=== PATIENT | female | born 1980 | race Caucasian/White ===

== ENCOUNTER 2024-05-14 09:58 | Emergency (ER) | payer BC ==
--- OUTSIDE RECORDS SUMMARY | 2024-05-14 10:01 | XMS REPORT | Continuity of Care Document ---
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 Name Role Phone Nuris Lopez Attending Clinician Unavail able [email or web address] Attending Clinician Unavaila ble [email or web address]_S Admitting Clinician Unavaila ble Problems Condition Name Condition Details Condition Category Status Onset Date Resolution Date Last Treatment Date Treating Clinician Comments Source Depressive disorder Depressive Disorder Problem Active 05-01 00:00: 00 [facility] Migraine without aura Migraine without Aura Problem Active 05-01 00:00: 00 [facility] Idiopathic peripheral neuropathy Idiopathic Peripheral Neuropathy Problem Active 05-01 00:00: 00 [facility] Social History Smoking Status Start Date Stop Date Source Never Smoker [facility] Medications Ordered Medication Name Filled Medication Name Start Date Stop Date Current Medication? Ordering Clinician Indication Dosage Frequency Signature (SIG) Comments Components Source Cymbalta Cymbalta No Cymbalta [facility] melatonin melatonin No melatonin [facility] Neurontin 300 mg capsule Take 1 capsule 3 times a day by oral route. Neurontin 300 mg capsule Take 1 capsule 3 times a day by oral route. No 1capsul e(s) TID Neurontin 300 mg capsule Take 1 capsule 3 times a day by oral route. [facility] Qulipta 60 mg tablet Take 1 tablet every day by oral route. Qulipta 60 mg tablet Take 1 tablet every day by oral route. No 1 Q1D Qulipta 60 mg tablet Take 1 tablet every day by oral route. [facility] Slynd 4 mg (28) tablet Take 1 tablet every day by oral route for 28 days. Slynd 4 mg (28) tablet Take 1 tablet every day by oral route for 28 days. No 1 Q1D Slynd 4 mg (28) tablet Take 1 tablet every day by oral route for 28 days. [facility] Vital Signs Vital Name Observation Time Observation Value Comments S ource Body Weight 2024-05-01 00:00:00 133 [lb_av] [facility] BMI (Body Mass Index) 2024-05-01 00:00:00 22.8 kg/m2 [facility] BP Diastolic 2024-05-01 00:00:00 88 mm[Hg] [facility] BP Systolic 2024-05-01 00:00:00 122 mm[Hg] [facility] Height 2024-05-01 00:00:00 64 [in_i] [facility] Procedures Procedure Date / Time Performed Performing Clinicia n Source MAMMO, screening, digital, bilateral 2024-05-01 00:00:00 [facility] Appendectomy 2023-02-27 00:00:00 [facility] En[facility] Start Date/Time End Date/Time Encounter Type Admission Type Attending Clinicians Care Facility Care Department Encounter ID Source 2024-03-16 08:13:01 Outpatient [facility] [id number] [facility] 2024-05-01 00:00:00 2024-05-01 00:00:00 JUMA George: [address], [place] [address], [place] [address] , Ph. [facility] - [email or web address] [facility]* [id number] [facility] 2023-08-09 00:00:00 2023-08-09 00:00:00 Outpatient [email or web address] [email or web address]_S [facility] [id number] [facility] 2023-08-08 00:00:00 2023-08-08 00:00:00 Outpatient [email or web address] [email or web address]_S [facility] [id number] [facility]
--- NOTE | 2024-05-14 10:58 | RAD REPORT ---
EXAM DESCRIPTION: CT - Stone Protocol - 05/14/2024 10:43 am CLINICAL HISTORY: ABD PAIN COMPARISON: No comparisons TECHNIQUE: Thin cut axial CT imaging of the abdomen and pelvis was performed without IV contrast. Mu ltiplanar reformats were generated and reviewed. All CT scans are performed using dose optimization technique as appropriate and may include automated exposure control or mA/KV adjustment according to patient size. FINDINGS: No suspicious findings in the lung bases. The liver, spleen, adrenal glands, and pancreas show no suspicious findings. Gallbladder and biliary tree are also without suspicious finding. Symmetric renal contour, without suspicious parenchymal findings within limits of noncontrast techniq ue. No evidence of radiopaque calculi or hydroureteronephrosis. No dilated bowel loops or bowel wall thickening. No free air, free fluid or inflammatory stranding. N o hernia, mass or bulky lymphadenopathy. The urinary bladder is without significant finding. No suspicious bony findings. IMPRESSION: No acute intra-abdominal process.
[2024-05-14] MEDS ORDERED: NA CHLORIDE 0.9% 1,000 ML ONE (11:11)
[2024-05-14] MEDS ORDERED: KETOROLAC 30 MG/ML INJ ONE (11:11)
[2024-05-14 11:29] LABS: Absolute Eosinophils 0.1 K/uL (0-0.5); Absolute Lymphocytes (CBC) 1.5 K/uL (0.7-4.9); Absolute Monocytes 0.4 K/uL (0.1-1.3); Basophils % 0.7 % (0-1.3); Eosinophils % 2.2 % (0-4.4); Hematocrit 39.6 % (36.0-45.0); Hemoglobin 13.3 g/dL (12.0-15.0); Lymphocytes % 30.1 % (15.3-44.8); MCHC 33.5 g/dL (32.0-36.0); MCV 86.6 fL (80-100); MPV 7.7 fL (7.6-11.3); Monocytes % 7.8 % (3.3-12.3); Neutrophils % 59.2 % (41.7-73.7); Platelets 245 thou/uL (152-406); RBC Red Blood Cell Count 4.57 M/uL (3.86-4.86); Red Cell Distribution Width 13.7 % (12.1-15.2)
[2024-05-14 12:12] LABS: Specific Gravity < 1.005 (1.005-1.030); Sqamous Epithelial <5 /HPF (None Seen); Urine Bacteria <20 /HPF (<20); Urine Bilirubin NEGATIVE (Negative); Urine Blood Negative (Negative); Urine Clarity Turbid (Clear); Urine Color Colorless (Yellow); Urine Culture Reflex Order NOT NEEDED; Urine Glucose NEGATIVE (Negative); Urine Ketones NEGATIVE (Negative); Urine Microscopic Reflex YN ORDER UMIC; Urine Mucus Slight /HPF (None Seen); Urine Nitrite NEGATIVE (Negative); Urine Protein NEGATIVE (Negative); Urine RBC <5 /HPF (None Seen); Urine Urobilinogen Normal (Normal); Urine WBC <5 /HPF (<5)
[2024-05-14 12:13] LABS: Specific Gravity 1.003 (1.005-1.030)
[2024-05-14 12:44] LABS: Anion Gap 4.2 mEq/L (5.0-15.0); Potassium 3.2 mEq/L (3.5-5.1)
--- NOTE | 2024-05-14 13:05 | ER ---
Nurse's Notes [facility] Name: Airam Richard Age: 44 yrs Sex: Female : 1980 Arrival Date: 05/14/2024 Time: 09:58 Bed 16 Private MD: Diagnosis: Low back pain Presentation: 05/14 10:31 Chief complaint: Patient states: Severe low back pain since Tuesday. Went to urgent care, abdominal pain for 2 days also. Coronavirus screen: Client denies travel out of the [place] in the last 14 days. At this time, the client does not indicate any symptoms associated with coronavirus-19. Ebola Screen: Patient denies travel to an Ebola-affected area in the 21 days before illness onset. Initial Sepsis Screen: Does the patient meet any 2 criteria? No. Patient's initial sepsis screen is negative. Does the patient have a suspected source of infection? No. Patient's initial sepsis screen is negative. Risk Assessment: Do you want to hurt yourself or someone else? Patient reports no desire to harm self or others. Onset of symptoms was May 12, 2024. 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 - Infectious Disease History:: Denies. - Social history:: Smoking status: Patient denies any tobacco usage or history of. Screenin:30 [facility] ED Fall Risk Assessment (Adult) History of falling in the last 3 months, dd2 including since admission No falls in past 3 months (0 pts) Confusion or Disorientation No (0 pts) Intoxicated or Sedated No (0 pts) Impaired Gait No (0 pts) Mobility Assist Device Used No (0 pt) Altered Elimination No (0 pt) Score/Fall Risk Level. Abuse screen: Denies threats or abuse. Nutritional screening: No deficits noted. Tuberculosis screening: No symptoms or risk factors identified. Assessment: 11:30 General: Appears uncomfortable, Behavior is calm, cooperative, Reports. Pain: Complains dd2 of pain in back and abdomen. Neuro: No deficits noted. Cardiovascular: No deficits noted. Respiratory: No deficits noted. GI: No deficits noted. : No deficits noted. EENT: No deficits noted. Derm: No deficits noted. Musculoskeletal: Reports pain in lumbar area, left low back and right low back since 05/13/2024. Vital Signs: 10:31 BP 138 / 88; Pulse 93; Resp 18; Temp 97; Pulse Ox 99% ; hb 11:30 BP 138 / 96; Pulse 73; Resp 15; Pulse Ox 100% ; dd2 13:35 BP 131 / 87; Pulse 68; Resp 15; Pulse Ox 100% ; dd2 ED Course: 10:00 Patient arrived in ED. ra3 10:02 Lindsey Dias FNP-C is PHCP. kb 10:02 Johnny Cuellar MD is Attending Physician. kb 10:33 Triage completed. hb 10:34 Arm band placed on. hb 10:45 CT Stone Protocol In Process Unspecified. EDMS 11:30 Patient has correct armband on for positive identification. Bed in low position. Call dd2 light in reach. Side rails up X 1. Provided Education on: CALL LIGHT, LABS. 11:30 No provider procedures requiring assistance completed. Inserted. Inserted saline lock: dd2 20 gauge in right antecubital area, using aseptic technique. Blood collected. Flushed with 10 mL NS. 11:49 TUNG LANDRY, RN is Primary Nurse. dd2 14:01 IV discontinued, intact, bleeding controlled, No redness/swelling at site. Pressure dd2 dressing applied. Administered Medications: 11:30 Drug: NS 0.9% IV 1000 ml IV at 1000 ml once Route: IV; Rate: 1000 ml; Site: right dd2 antecubital; 13:34 Follow up: Response: No adverse reaction; IV Status: Completed infusion; IV Intake: dd2 1000ml 11:30 Drug: Ketorolac IVP 15 mg IVP once Route: IVP; Site: right antecubital; dd2 11:45 Follow up: Response: No adverse reaction; Pain is decreased dd2 11:45 Follow up: Response: No adverse reaction dd2 13:33 Drug: Hydrocodone-Acetaminophen PO (7.5 mg-325 mg) 1 tabs PO once Route: PO; dd2 14:00 Follow up: Response: No adverse reaction dd2 13:33 Drug: Potassium Chloride PO 40 mEq PO once Route: PO; dd2 14:00 Follow up: Response: No adverse reaction dd2 13:33 Drug: Ondansetron IVP 4 mg IVP once; over 2 minutes Route: IVP; Site: right antecubital;dd2 13:48 Follow up: Response: No adverse reaction dd2 Medication: 11:30 VIS not applicable for this client. dd2 Intake: 13:34 IV: 1000ml; Total: 1000ml. dd2 Outcome: 13:05 Discharge ordered by MD. mcrae 14:01 Discharged to home ambulatory, with family, dd2 14:01 Condition: good 14:01 Discharge instructions given to patient, family, Instructed on discharge instructions, follow up and referral plans. medication usage, Demonstrated understanding of instructions, follow-up care, medications, Prescriptions given X 1, 14:02 Patient left the ED. dd2 Signatures: Dispatcher [employer] EDMS Lindsey Dias, JUMA-C HAZMAT TECHNICIAN-Lorraine Howard, LISBET RN Lorin Niño 3 TUNG LANDRY RN RN dd2
--- NOTE | 2024-05-14 13:06 | EDPHYS ---
Physician Documentation [facility] Name: Airam Richard Age: 44 yrs Sex: Female : 1980 Arrival Date: 05/14/2024 Time: 09:58 Bed 16 Private MD: ED Physician Johnny Cuellar HPI: 05/14 13:11 This 44 yrs old Female presents to ER via Ambulatory with complaints of Low Back Pain. kb 13:11 Pt is a 44 year old female who presents for mid low back pain that started 3 days ago. kb States she went to Urgent Care and was told she needed testing they couldn't do at because she had tenderness to abd on exam. Denies urinary symptoms, n/v/d, fever. . 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 - Infectious Disease History:: Denies. - Social history:: Smoking status: Patient denies any tobacco usage or history of. ROS: 13:11 Constitutional: As per HPI kb Exam: 13:11 Constitutional: This is a well developed, well nourished patient who is awake, alert, kb and in no acute distress. Head/Face: Normocephalic, atraumatic. ENT: Moist Mucous membranes Cardiovascular: Regular rate Respiratory: Respirations even and unlabored. No increased work of breathing. Talking in full sentences Abdomen/GI: Soft, non-tender. No distention Back: No spinal tenderness. No costovertebral tenderness. Full range of motion. Skin: Warm, dry with normal turgor. Normal color. MS/ Extremity: Pulses equal, no cyanosis. Neurovascular intact. Full, normal range of motion. Neuro: Awake and alert, GCS 15, oriented to person, place, time, and situation. Moves all extremities. Normal gait. Vital Signs: 10:31 BP 138 / 88; Pulse 93; Resp 18; Temp 97; Pulse Ox 99% ; hb 11:30 BP 138 / 96; Pulse 73; Resp 15; Pulse Ox 100% ; dd2 13:35 BP 131 / 87; Pulse 68; Resp 15; Pulse Ox 100% ; dd2 MDM: 10:02 Patient medically screened. kb 13:12 Differential diagnosis: arthritis, strain, Herniated disc UTI. Data reviewed: vital kb signs, nurses notes. Historians other than the Patient: Spouse/Significant Other: . Counseling: I had a detailed discussion with the patient and/or guardian regarding the historical points, exam findings, and any diagnostic results supporting the discharge/admit diagnosis, lab results, radiology results, the need for outpatient follow up, a family practitioner, to return to the emergency department if symptoms worsen or persist or if there are any questions or concerns that arise at home. ED course: Pt is a 44 year old female who presents for low back pain x 3 days. On exam pt has no abd tenderness, CVA tenderness or vertebral tenderness. CT, UA and serum labs ordered and reviewed. Discussed all results with patient and spouse. Pt states she is supposed to have a pelvic US because her FSH was high at Dr Gutierrez's office. States there should be an order in the system and she would like to have it done while she is here. Pt educated that there is not an emergent indication for pelvic US and that the order would be for an outpatient test from Dr Gutierrez. Pt states she will go to imaging after discharge to see if they can get it done. Pt educated on need for follow up and return precautions. Verbal understanding received. Pt is laying comfortably on stretcher. VSS. Stable for discharge. 05/14 10:34 Order name: CBC with Diff; Complete Time: 11:36 kb 05/14 10:34 Order name: Basic Metabolic Panel; Complete Time: 12:51 kb 05/14 10:34 Order name: Test, Urine; Complete Time: 12:19 kb 05/14 10:34 Order name: Urinalysis w/ reflexes; Complete Time: 12:12 kb 05/14 10:34 Order name: CT Stone Protocol; Complete Time: 11:00 kb 05/14 10:34 Order name: IV Start; Complete Time: 12:12 kb Administered Medications: 11:30 Drug: NS 0.9% IV 1000 ml IV at 1000 ml once Route: IV; Rate: 1000 ml; Site: right dd2 antecubital; 13:34 Follow up: Response: No adverse reaction; IV Status: Completed infusion; IV Intake: dd2 1000ml 11:30 Drug: Ketorolac IVP 15 mg IVP once Route: IVP; Site: right antecubital; dd2 11:45 Follow up: Response: No adverse reaction; Pain is decreased dd2 11:45 Follow up: Response: No adverse reaction dd2 13:33 Drug: Hydrocodone-Acetaminophen PO (7.5 mg-325 mg) 1 tabs PO once Route: PO; dd2 14:00 Follow up: Response: No adverse reaction dd2 13:33 Drug: Potassium Chloride PO 40 mEq PO once Route: PO; dd2 14:00 Follow up: Response: No adverse reaction dd2 13:33 Drug: Ondansetron IVP 4 mg IVP once; over 2 minutes Route: IVP; Site: right antecubital;dd2 13:48 Follow up: Response: No adverse reaction dd2 Disposition Summary: 05/14/24 13:05 Discharge Ordered Notes: Location: Home kb Condition: Stable kb Diagnosis - Low back pain kb Followup: kb - With: Emergency Department - When: As needed - Reason: Worsening of condition Followup: kb - With: Private Physician - When: 2 - 3 days - Reason: Recheck today's complaints, Continuance of care, Re-evaluation by your physician Discharge Instructions: - Discharge Summary Sheet kb - Musculoskeletal Pain kb Forms: - Work release form kb - Medication Reconciliation Form kb - Antibiotic Education kb - Prescription Opioid Use kb - Patient Portal Instructions kb - Leadership Thank You Letter kb Prescriptions: - Diclofenac Sodium 75 mg Oral tablet, delayed release (enteric coated) - take 1 tablet ORAL route 2 times per day As needed; 30 tablet; Refills: 0, kb Product Selection Permitted - orphenadrine citrate 100 mg Oral Tablet Sustained Release - take 1 tablet ORAL route 2 times per day As needed; 20 tablet; Refills: 0, kb Product Selection Permitted Signatures: Dispatcher [employer] Lindsey Vanegas FNP-C FNP-Lorraine Howard RN RN TUNG England RN RN dd2
[2024-05-14] MEDS ORDERED: ONDANSETRON 4 MG/2 ML VIAL ONE (13:07)
[2024-05-14] MEDS ORDERED: POTASSIUM CL SA 10 MEQ TAB PO ONE (13:07)
[2024-05-14] MEDS ORDERED: HYDROCODONE/APAP 7.5/325 MG TAB ONE (13:08)
[2024-05-14 16:37] VITALS: TEMP 97
[2024-05-14 16:41] VITALS: O2SAT 100
[2024-05-14 16:43] VITALS: BP 131/87
== END 2024-05-14 14:02 | disposition home or self-care (01) ==
LOC: ER 09:58
DX: M54.50 Low back pain, unspecified (principal)
CPT/HCPCS: 96361; 85025; 81001; 80048; 36415; 81025; 76377; 74176; 96375; 96374; 99284; J2405; J7030

== ENCOUNTER 2024-09-20 17:57 | Emergency (ER) | payer BC ==
--- OUTSIDE RECORDS SUMMARY | 2024-09-20 18:00 | XMS REPORT | Continuity of Care Document ---
Author Name Unknown Address [address] [place] [address] [address] [place] [address] [facility] thconnect Address [address] [facility] [address] [place] [address] Care Team Providers Care Flask Pusher Name Role Phone Nuris Lopez Attending Clinician Unavail able GC_GCBZW_Kadiyala_S Attending Clinician Unavaila ble GC_GCBZW_Kadiyala_S Admitting Clinician Unavaila ble Problems Condition Name Condition Details Condition Category Status Onset Date Resolution Date Last Treatment Date Treating Clinician Comments Source Abnormal uterine bleeding Abnormal Uterine Bleeding Problem Active 2023-10 0-31 00:00: 00 [facility] Excessive and frequent menstruati on Excessive and Frequent Menstruati on Problem Active 2023-10 0- 00:00: 00 [facility] Degenerati on of lumbar interverte bral disc Degenerati on of Lumbar Interverte bral Disc Problem Active 2023-10 0- 00:00: 00 [facility] Complex cyst of left ovary Complex Cyst of Left Ovary Problem Active 8-15 00:00: 00 [facility] Cyst of left ovary Cyst of Left Ovary Problem Active 8-15 00:00: 00 [facility] Depressive disorder Depressive Disorder Problem Active 05-01 [...] Dosage Frequency Signature (SIG) Comments Components Source ketorolac 30 mg/mL (1 mL) injection solution Inject 1 mL every 6 hours by intramuscul ar route. ketorolac 30 mg/mL (1 mL) injection solution Inject 1 mL every 6 hours by intramuscul ar route. 2023-10 09:44: 03 No 1mL Q6H ketorolac 30 mg/mL (1 mL) injection solution Inject 1 mL every 6 hours by intramuscu lar route. [facility] Temovate 0.05 % scalp solution 1 application as needed by topical route. Temovate 0.05 % scalp solution 1 application as needed by topical route. 2009-10 00:00: 00 No 1applic ation(s ) Temovate 0.05 % scalp solution 1 applicatio n as needed by topical route. [facility] Temovate 0.05 % topical ointment Temovate 0.05 % topical ointment 2009-10 00:00: 00 No Temovate 0.05 % topical ointment [facility] acetaminoph en 300 mg-codeine 30 mg tablet TAKE 1 TABLET BY MOUTH EVERY 6 HOURS WITH MEALS FOR 2 DAYS acetaminoph en 300 mg-codeine 30 mg tablet TAKE 1 TABLET BY MOUTH EVERY 6 HOURS WITH MEALS FOR 2 DAYS No 1 Q6H acetaminop hen 300 mg-codeine 30 mg tablet TAKE 1 TABLET BY MOUTH EVERY 6 HOURS WITH MEALS FOR 2 DAYS [facility] celecoxib 200 mg capsule TAKE 1 CAPSULE BY MOUTH FOR ONE DOSE THE NIGHT BEFORE PROCEDURE celecoxib 200 mg capsule TAKE 1 CAPSULE BY MOUTH FOR ONE DOSE THE NIGHT BEFORE PROCEDURE No celecoxib 200 mg capsule TAKE 1 CAPSULE BY MOUTH FOR ONE DOSE THE NIGHT BEFORE PROCEDURE [facility] diazepam 10 mg tablet TAKE 1 TABLET BY MOUTH NIGHT BEFORE PROCEDURE AND 1 TABLET BY MOUTH 1 HOUR PRIOR TO PROCEDURE diazepam 10 mg tablet TAKE 1 TABLET BY MOUTH NIGHT BEFORE PROCEDURE AND 1 TABLET BY MOUTH 1 HOUR PRIOR TO PROCEDURE No diazepam 10 mg tablet TAKE 1 TABLET BY MOUTH NIGHT BEFORE PROCEDURE AND 1 TABLET BY MOUTH 1 HOUR PRIOR TO PROCEDURE [facility] Cymbalta Cymbalta No Cymbalta [facility] melatonin melatonin No melatonin [facility] Qulipta 60 mg tablet TAKE 1 TABLET BY MOUTH EVERY DAY Qulipta 60 mg tablet TAKE 1 TABLET BY MOUTH EVERY DAY No 1 Q1D Qulipta 60 mg tablet TAKE 1 TABLET BY MOUTH EVERY DAY [facility] Slynd 4 mg (28) tablet Take 1 tablet every day by oral route for 28 days. Slynd 4 mg (28) tablet Take 1 tablet every day by oral route for 28 days. No 1 Q1D Slynd 4 mg (28) tablet Take 1 tablet every day by oral route for 28 days. [facility] Marta-D 12 Hour 60 mg-120 mg tablet,exte nded release TWICE DAILY FOR 14 DAYS Marta-D 12 Hour 60 mg-120 mg tablet,exte nded release TWICE DAILY FOR 14 DAYS No Marta-D 12 Hour 60 mg-120 mg tablet,ext ended release TWICE DAILY FOR 14 DAYS [facility] amoxicillin 875 mg-potassiu m clavulanate 125 mg tablet TAKE 1 TABLET BY MOUTH TWICE DAILY FOR 10 DAYS amoxicillin 875 mg-potassiu m clavulanate 125 mg tablet TAKE 1 TABLET BY MOUTH TWICE DAILY FOR 10 DAYS No amoxicilli n 875 mg-potassi um clavulanat e 125 mg tablet TAKE 1 TABLET BY MOUTH TWICE DAILY FOR 10 DAYS [facility] diclofenac sodium 75 mg tablet,hao yed release TAKE 1 TABLET BY MOUTH TWICE DAILY NEEDED diclofenac sodium 75 mg tablet,hao yed release TAKE 1 TABLET BY MOUTH TWICE DAILY NEEDED No diclofenac sodium 75 mg tablet,del ayed release TAKE 1 TABLET BY MOUTH TWICE DAILY NEEDED [facility] duloxetine 60 mg capsule,del ayed release TAKE 1 CAPSULE BY MOUTH DAILY duloxetine 60 mg capsule,del ayed release TAKE 1 CAPSULE BY MOUTH DAILY No duloxetine 60 mg capsule,de layed release TAKE 1 CAPSULE BY MOUTH DAILY [facility] fluconazole 200 mg tablet fluconazole 200 mg tablet No fluconazol e 200 mg tablet [facility] gabapentin 300 mg capsule TAKE 1 CAPSULE BY MOUTH AT BEDTIME gabapentin 300 mg capsule TAKE 1 CAPSULE BY MOUTH AT BEDTIME No gabapentin 300 mg capsule TAKE 1 CAPSULE BY MOUTH AT BEDTIME [facility] ibuprofen 400 mg tablet TAKE 1 TABLET BY MOUTH THREE TIMES DAILY WITH FOOD OR MILK NEEDED ibuprofen 400 mg tablet TAKE 1 TABLET BY MOUTH THREE TIMES DAILY WITH FOOD OR MILK NEEDED No ibuprofen 400 mg tablet TAKE 1 TABLET BY MOUTH THREE TIMES DAILY WITH FOOD OR MILK NEEDED [facility] methylpredn isolone 4 mg tablets in a dose pack FOLLOW PACKAGE DIRECTIONS methylpredn isolone 4 mg tablets in a dose pack FOLLOW PACKAGE DIRECTIONS No methylpred nisolone 4 mg tablets in a dose pack FOLLOW PACKAGE DIRECTIONS [facility] norethindro ne (contracept elli) 0.35 mg tablet TAKE 1 TABLET BY MOUTH ONCE A DAILY norethindro ne (contracept elli) 0.35 mg tablet TAKE 1 TABLET BY MOUTH ONCE A DAILY No norethindr one (contracep tive) 0.35 mg tablet TAKE 1 TABLET BY MOUTH ONCE A DAILY [facility] orphenadrin e citrate ER 100 mg tablet,exte nded release TAKE 1 TABLET BY MOUTH TWICE DAILY NEEDED orphenadrin e citrate ER 100 mg tablet,exte nded release TAKE 1 TABLET BY MOUTH TWICE DAILY NEEDED No orphenadri ne citrate ER 100 mg tablet,ext ended release TAKE 1 TABLET BY MOUTH TWICE DAILY NEEDED [facility] Prescriptio n - Prior Authorizati on Request Prescriptio n - Prior Authorizati on Request No Prescripti on - Prior Authorizat ion Request [facility] sumatriptan 100 mg tablet TAKE 1 TABLET BY MOUTH AT ONSET OF HEADACHE MAY REPEAT IN 2 HOURS IF NEEDED sumatriptan 100 mg tablet TAKE 1 TABLET BY MOUTH AT ONSET OF HEADACHE MAY REPEAT IN 2 HOURS IF NEEDED No sumatripta n 100 mg tablet TAKE 1 TABLET BY MOUTH AT ONSET OF HEADACHE MAY REPEAT IN 2 HOURS IF NEEDED [facility] sumatriptan 50 mg tablet TAKE 1 TABLET BY MOUTH NEEDED sumatriptan 50 mg tablet TAKE 1 TABLET BY MOUTH NEEDED No sumatripta n 50 mg tablet TAKE 1 TABLET BY MOUTH NEEDED [facility] tramadol 50 mg tablet TAKE 1 TABLET BY MOUTH EVERY 6 HOURS FOR 3 DAYS NEEDED tramadol 50 mg tablet TAKE 1 TABLET BY MOUTH EVERY 6 HOURS FOR 3 DAYS NEEDED No 1 Q6H tramadol 50 mg tablet TAKE 1 TABLET BY MOUTH EVERY 6 HOURS FOR 3 DAYS NEEDED [facility] Vital Signs Vital Name Observation Time Observation Value Comments S ource BP Systolic 2024-08-10 00:00:00 97 mm[Hg] [facility] Height 2024-08-10 00:00:00 64 [in_i] [facility] BMI (Body Mass Index) 2024-08-10 00:00:00 22.4 kg/m2 [facility] BP Diastolic 2024-08-10 00:00:00 68 mm[Hg] [facility] Body Weight 2024-08-10 00:00:00 130.6 [lb_av] [facility] Height 2024-08-01 00:00:00 64 [in_i] [facility] BMI (Body Mass Index) 2024-06-13 00:00:00 22.4 kg/m2 [facility] BP Systolic 2024-06-13 00:00:00 117 mm[Hg] [facility] Body Weight 2024-06-13 00:00:00 130.6 [lb_av] [facility] BP Diastolic 2024-06-13 00:00:00 79 mm[Hg] [facility] Height 2024-06-13 00:00:00 64 [in_i] [facility] Body Weight 2024-05-01 00:00:00 133 [lb_av] [facility] BMI (Body Mass Index) 2024-05-01 00:00:00 22.8 kg/m2 [facility] BP Diastolic 2024-05-01 00:00:00 88 mm[Hg] [facility] BP Systolic 2024-05-01 00:00:00 122 mm[Hg] [facility] Height 2024-05-01 00:00:00 64 [in_i] [facility] Procedures Procedure Date / Time Performed Performing Clinicia n Source US, breast, unilateral 2024-08-24 00:00:00 [facility] TRANSVAGINAL 2024-05-24 00:00:00 [facility] US, pelvis, transabdominal + transvaginal 2024-05-14 00:00:00 [facility] MAMMO, screening, digital, bilateral 2024-05-01 00:00:00 [facility] Appendectomy 2023-02-27 00:00:00 [facility] En[facility] Start Date/Time End Date/Time Encounter Type Admission Type Attending Clinicians Care Facility Care Department Encounter ID Source 2024-03-16 08:13:01 Outpatient Nuris Lopez [facility] [id number] [facility] 2024-08-24 00:00:00 2024-08-24 00:00:00 JONNATHAN Ospina: [address], [place] [address] , Ph. [facility] - GC_GCBZW_Renetta Dias* [id number] [facility] 2024-08-10 00:00:00 2024-08-10 00:00:00 Sidra Gutierrez MD: [address], [place] [address] , Ph. [facility] - GC_GCBZW_Tn faye Arun* [id number] [facility] 2024-08-01 00:00:00 2024-08-01 00:00:00 MICK GeorgeP: [address], [place] [phone] , Ph. [facility] - GC_GCBZW_[facility]* [id number] [facility] 2024-06-13 00:00:00 2024-06-13 00:00:00 JONNATHAN Ospina: [address], [place] [phone] , Ph. [facility] [id number] [facility] 2024-05-24 00:00:00 2024-05-24 00:00:00 JUMA Devine: [address], [place] [id number] , Ph. [facility] [id number] [facility] 2024-05-11 00:00:00 2024-05-11 00:00:00 JONNATHAN Ospina: [address], [place] [address] , Ph. [facility] - GC_GCBZW_Tn faye Arun* [id number] [facility] 2024-05-01 00:00:00 2024-05-01 00:00:00 JUMA George: [address], [place] [phone] , Ph. [facility] - GC_GCBZW_Renetta Dias* [id number] [facility] 2023-08-09 00:00:00 2023-08-09 00:00:00 Outpatient GC_GCBZW_Ka emigdioa_S [facility] [id number] [facility] 2023-08-08 00:00:00 2023-08-08 00:00:00 Outpatient GC_GCBZW_Ka diyala_S [facility] [id number] [facility] Results Test Description Test Time Test Comments Results Result Co mments Source [facility] [id number] 00:00:00* Test Item Value Reference Range Interpretation Comme nts diagnosis: (test code = diagnosis:) COMMENT specimen adequacy: (test cod e = specimen adequacy:) COMMENT performed by: (test code = p erformed by:) COMMENT note: (test code = note:) COMMENT test methodology: (test code = test methodology:) COMMENT HPV aptima (test code = HPV aptima) NEGATIVE negative [facility] and Neisseria gonorrhoeae rRNA panel - Specimen by SABRINA with probe [id number] 00:00:00* Test Item Value Reference Range Interpretation Comme nts chlamydia trachomatis, SABRINA ( test code = chlamydia trachomatis, SABRINA) NEGATIVE negative neisseria gonorrhoeae, SABRINA ( test code = neisseria gonorrhoeae, SABRINA) NEGATIVE negative [facility] MedicalFollitropin [Units/volume] in Serum or [id number] 00:00:00* Test Item Value Reference Range Interpretation Comme nts FSH (test code = FSH) 92.5 mIU/mL [facility] (E2) [Mass/volume] in Serum or [id number] 00:00:00 * Test Item Value Reference Range Interpretation Comme nts estradiol (test code = estradiol) 43.2 pg/mL 6.1-91.9 [facility]
[2024-09-20] MEDS ORDERED: ONDANSETRON 4 MG/2 ML VIAL ONE (18:20)
[2024-09-20] MEDS ORDERED: FAMOTIDINE 20 MG/2 ML VIAL IV ONE (18:20)
[2024-09-20] MEDS ORDERED: NA CHLORIDE 0.9% 1,000 ML ONE (18:21)
[2024-09-20 18:41] LABS: Absolute Lymphocytes (CBC) 0.6 K/uL (0.7-4.9); Absolute Monocytes 0.3 K/uL (0.1-1.3); Absolute Neutrophil 2.8 K/uL (1.8-8.0); Basophils % 0.7 % (0-1.3); Hematocrit 39.7 % (36.0-45.0); Hemoglobin 13.6 g/dL (12.0-15.0); Lymphocytes % 16.5 % (15.3-44.8); MCH 29.3 pg (27.0-35.0); MCHC 34.3 g/dL (32.0-36.0); MCV 85.4 fL (80-100); MPV 7.1 fL (7.6-11.3); Monocytes % 8.6 % (3.3-12.3); Neutrophils % 73.2 % (41.7-73.7); Nucleated Red Blood Cells % 0.1 % (0-0); Platelets 274 thou/uL (152-406); RBC Red Blood Cell Count 4.65 M/uL (3.86-4.86); Red Cell Distribution Width 13.9 % (12.1-15.2)
[2024-09-20 19:04] LABS: AST/SGOT 19 U/L (15-37); Albumin 3.7 g/dL (3.4-5.0); Albumin/Globulin Ratio 1.2 (1.1-1.8); Alkaline Phosphatase 56 U/L (45-117); Anion Gap 7.1 mEq/L (5.0-15.0); BUN Blood Urea Nitrogen 11 mg/dL (7-18); Bicarbonate 26 mEq/L (21-32); Bilirubin Total 0.4 mg/dL (0.2-1.0); Globulin 3.1 g/dL (2.3-3.5); Glomerular Filtration Rate 75 ml/min (=/>90); Glucose Level 97 mg/dL (74-106); Lipase 46 U/L (13-75); Potassium 3.1 mEq/L (3.5-5.1); Protein, Total 6.8 g/dL (6.4-8.2); Sodium Level 137 mEq/L (136-145)
[2024-09-20 19:28] LABS: ALT/SGPT < 14 U/L (13-56)
[2024-09-20 19:43] LABS: Specific Gravity 1.015 (1.005-1.030); Sqamous Epithelial None Seen /HPF (None Seen); Urine Bacteria <20 /HPF (<20); Urine Bilirubin NEGATIVE (Negative); Urine Blood Negative (Negative); Urine Clarity Clear (Clear); Urine Color Light-Yellow (Yellow); Urine Culture Reflex Order NOT NEEDED; Urine Glucose NEGATIVE (Negative); Urine Ketones 1+ (Negative); Urine Microscopic Reflex YN ORDER UMIC; Urine Mucus Slight /HPF (None Seen); Urine Nitrite NEGATIVE (Negative); Urine Protein NEGATIVE (Negative); Urine RBC <5 /HPF (None Seen); Urine Urobilinogen 2+ (Normal); Urine WBC <5 /HPF (<5); Urine pH 6.5 (5.0-7.0)
[2024-09-20 19:44] LABS: Specific Gravity 1.015 (1.005-1.030)
[2024-09-20] MEDS ORDERED: POTASSIUM 25 MEQ EFFERV TAB ONE (19:49)
[2024-09-20 19:53] LABS: SARS-CoV-2 Antigen CONTROL BLUE LINE VIS/BG OK; SARS-CoV-2 Antigen Rapid Res Negative (Negative)
--- NOTE | 2024-09-20 20:12 | ER ---
Nurse's Notes [facility] Name: Airam Richard Age: 44 yrs Sex: Female : 1980 Arrival Date: 09/20/2024 Time: 17:57 Bed 15 Private MD: Diagnosis: Nausea with vomiting, unspecified;Diarrhea, unspecified Presentation: 09/20 18:01 Chief complaint: Patient states: n/v/d since yesterday went to urgent care, had covid ko1 and flu test which were negative. Coronavirus screen: diarrhea, nausea, vomiting. Ebola Screen: No symptoms or risks identified at this time. Initial Sepsis Screen: Does the patient meet any 2 criteria? No. Patient's initial sepsis screen is negative. Does the patient have a suspected source of infection? No. Patient's initial sepsis screen is negative. Risk Assessment: Do you want to hurt yourself or someone else? Patient reports no desire to harm self or others. Onset of symptoms was September 20, 2024. 18:01 Method Of Arrival: Ambulatory ko1 18:01 Acuity: BELKYS 3 ko1 Triage Assessment: 18:05 General: Appears in no apparent distress. Behavior is calm, cooperative, appropriate ko1 for age. Pain: Complains of pain in abdomen. GI: Reports diarrhea, nausea, vomiting. Historical: - Allergies: 18:05 No Known Allergies; ko1 - PMHx: 18:05 None; ko1 - PSHx: 18:05 Appendectomy; Lymph nodes removed; ko1 - Immunization history:: Adult Immunizations unknown. - Infectious Disease History:: Denies. - Social history:: Smoking status: Patient denies any tobacco usage or history of. Screenin:37 [facility] Fall Risk Assessment (Adult) History of falling in the last 3 months, ph including since admission No falls in past 3 months (0 pts) Confusion or Disorientation No (0 pts) Intoxicated or Sedated No (0 pts) Impaired Gait No (0 pts) Mobility Assist Device Used No (0 pt) Altered Elimination No (0 pt) Score/Fall Risk Level 0 - 2 = Low Risk Oriented to surroundings, Maintained a safe environment, Hourly rounding (assess needs \T\ fall precautionary measures) done. Abuse screen: Denies threats or abuse. Denies injuries from another. Nutritional screening: No deficits noted. Tuberculosis screening: No symptoms or risk factors identified. Assessment: 18:37 General: Appears in no apparent distress. Behavior is calm, cooperative, appropriate ph for age. Pain: Complains of pain in abdomen. Neuro: Level of Consciousness is awake, alert, obeys commands, Oriented to person, place, time, situation. Cardiovascular: Capillary refill < 3 seconds in bilateral fingers Patient's skin is warm and dry. Respiratory: Airway is patent Respiratory effort is even, unlabored, Respiratory pattern is regular, symmetrical. GI: Abdomen is non-distended, Reports upper abdominal pain, diarrhea, nausea, vomiting. Derm: Skin is pink, warm \T\ dry. 19:10 General: Appears in no apparent distress. comfortable, Behavior is appropriate for age. rg5 19:10 Pain: Denies pain. Neuro: Level of Consciousness is awake, alert, obeys commands, rg5 Oriented to person, place, time, situation. Cardiovascular: Denies chest pain. Respiratory: Airway is patent Respiratory pattern is regular, symmetrical, Breath sounds are clear bilaterally. GI: Reports diarrhea, nausea, vomiting. EENT: No deficits noted. Derm: Skin is intact, Skin is dry, Skin is normal, Skin temperature is warm. Musculoskeletal: Range of motion: intact in all extremities. 20:10 Reassessment: Patient and/or family updated on plan of care and expected duration. Pain rg5 level reassessed. Patient is alert, oriented x 3, equal unlabored respirations, skin warm/dry/pink. Patient states feeling better. Patient states symptoms have improved. Vital Signs: 18:01 BP 112 / 82; Pulse 104; Resp 16; Temp 97.8; Pulse Ox 99% ; ko1 19:30 BP 115 / 80; Pulse 96; Resp 17; Temp 98; Pulse Ox 100% on R/A; rg5 20:30 BP 115 / 75; Pulse 79; Resp 17; Pulse Ox 100% ; Pain 0/10; rg5 20:30 Pain Scale: Adult rg5 ED Course: 18:00 Patient arrived in ED. ra3 18:05 Triage completed. ko1 18:05 Nico Wiseman PA is PHCP. cp 18:05 Johnny Cuellar MD is Attending Physician. cp 18:05 Arm band placed on right wrist. Patient placed in an exam room, on a stretcher, on ko1 pulse oximetry, Patient notified of wait time. 18:17 Lakshmi Martinez, RN is Primary Nurse. ph 18:37 Patient has correct armband on for positive identification. Bed in low position. Call ph light in reach. Side rails up X 1. Pulse ox on. NIBP on. Door closed. Noise minimized. Pillow given. 18:37 Initial lab(s) drawn, by me, sent to lab. Inserted saline lock: 22 gauge in right ph antecubital area, using aseptic technique. Blood collected. Flushed with 10 mL NS. 19:34 COVID swab sent to lab. Flu and/or RSV swab sent to lab. oe 19:34 SARS RAPID Sent. oe 19:34 Influenza Screen (a \T\ B) Sent. oe 20:44 Provided Education on: POST ER CARE. rg5 20:44 IV discontinued, bleeding controlled, No redness/swelling at site. Pressure dressing rg5 applied. 20:44 No provider procedures requiring assistance completed. rg5 Administered Medications: 18:36 Drug: Famotidine IVP 20 mg IVP once; dilute with 10 mL 0.9% NaCl; give over 2 minutes ph Route: IVP; Site: right antecubital; 20:20 Follow up: Response: No adverse reaction rg5 18:36 Drug: Ondansetron IVP 4 mg IVP once; over 2 minutes Route: IVP; Site: right antecubital;ph 20:20 Follow up: Response: No adverse reaction rg5 18:36 Drug: NS 0.9% IV 1000 ml IV at 1 bolus Per protocol; to be given as a bolus over 60 ph minutes Route: IV; Rate: 1 bolus; Site: right antecubital; 19:10 Follow up: IV Status: Completed infusion; IV Intake: 1000ml rg5 19:58 Drug: Potassium PO Effervescent Tablet 50 mEq PO once; dissolve in 4 ounces of water or rg5 juice Route: PO; 20:20 Follow up: Response: No adverse reaction rg5 Medication: 18:37 VIS not applicable for this client. ph Intake: 19:10 IV: 1000ml; Total: 1000ml. rg5 Outcome: 20:12 Discharge ordered by . cp 20:43 Discharged to home ambulatory, rg5 20:43 Condition: stable 20:43 Discharge instructions given to patient, Instructed on discharge instructions, follow up and referral plans. Demonstrated understanding of instructions, follow-up care, medications, Prescriptions given X 1, 20:45 Patient left the ED. rg5 Signatures: Lakshmi Martinez, RN RN Nico Bui PA PA cp Espinosa, Orlando oe Oliver, Kathy, RN RN [email or web address] Lorin Souza ra3 Arturo Mccarthy, RN RN rg5
--- NOTE | 2024-09-20 20:13 | EDPHYS ---
Physician Documentation [facility] Name: Airam Richard Age: 44 yrs Sex: Female : 1980 Arrival Date: 09/20/2024 Time: 17:57 Bed 15 Private MD: ED Physician Johnny Cuellar HPI: 09/20 18:08 This 44 yrs old Female presents to ER via Ambulatory with complaints of cp Nausea/Vomiting/Diarrhea. 18:08 The patient presents to the emergency department with nausea, with "dry heaves", cp vomiting, that is intermittent, diarrhea, that is intermittent. Onset: The symptoms/episode began/occurred this morning. Possible causes: unknown. Associated signs and symptoms: Pertinent negatives: abdominal pain, constipation, dysuria, fever, GI bleeding. Severity of symptoms: in the emergency department the symptoms are unchanged despite home interventions. Historical: - Allergies: 18:05 No Known Allergies; ko1 - PMHx: 18:05 None; ko1 - PSHx: 18:05 Appendectomy; Lymph nodes removed; ko1 - Immunization history:: Adult Immunizations unknown. - Infectious Disease History:: Denies. - Social history:: Smoking status: Patient denies any tobacco usage or history of. ROS: 18:15 Constitutional: Positive for poor PO intake, Negative for body aches, chills, fever, cp 18:15 Eyes: Negative for injury, pain, redness, and discharge, cp 18:15 Respiratory: Negative for cough, shortness of breath, wheezing, 18:15 Abdomen/GI: Positive for nausea, vomiting, and diarrhea, Negative for abdominal pain, 18:15 Back: Negative for pain at rest, pain with movement, cp 18:15 : Negative for urinary symptoms, pelvic pain, flank pain, vaginal bleeding, 18:15 Neuro: Negative for altered mental status, dizziness, headache, weakness, 18:15 All other systems are negative, Exam: 18:20 Constitutional: The patient appears in no acute distress, alert, awake, non-toxic, well cp developed, well nourished, uncomfortable, 18:20 Head/Face: Normocephalic, atraumatic. cp 18:20 Eyes: Periorbital structures: appear normal, Conjunctiva: normal, no exudate, no injection, Sclera: no appreciated abnormality, Lids and lashes: appear normal, bilaterally, 18:20 ENT: External ear(s): are unremarkable, Nose: is normal, Mouth: Lips: moist, Oral mucosa: moist, Posterior pharynx: Airway: no evidence of obstruction, patent, 18:20 Chest/axilla: Inspection: normal, 18:20 Cardiovascular: Rate: tachycardic, Rhythm: regular, 18:20 Respiratory: the patient does not display signs of respiratory distress, Respirations: normal, no use of accessory muscles, no retractions, labored breathing, is not present, Breath sounds: are clear throughout, no decreased breath sounds, no stridor, no wheezing, 18:20 Abdomen/GI: Inspection: abdomen appears normal, Bowel sounds: active, all quadrants, Palpation: soft, in all quadrants, nontender, in all quadrants, rebound tenderness, is not appreciated, voluntary guarding, is not appreciated, involuntary guarding, is not appreciated, 18:20 Back: pain, is absent, ROM is normal, Vital Signs: 18:01 BP 112 / 82; Pulse 104; Resp 16; Temp 97.8; Pulse Ox 99% ; ko1 19:30 BP 115 / 80; Pulse 96; Resp 17; Temp 98; Pulse Ox 100% on R/A; rg5 20:30 BP 115 / 75; Pulse 79; Resp 17; Pulse Ox 100% ; Pain 0/10; rg5 20:30 Pain Scale: Adult rg5 MDM: 18:08 Medical Screening Exam initiated cp 19:00 Differential diagnosis: gastritis, pancreatitis, diverticulitis, viral gastroenteritis, cp gastroenteritis. 20:11 Data reviewed: vital signs, nurses notes, lab test result(s), and as a result, I will cp discharge patient. 20:12 I considered the following discharge prescriptions or medication management in the emergency department Medications were administered in the Emergency Department. See MAR. 20:12 Counseling: I had a detailed discussion with the patient and/or guardian regarding the historical points, exam findings, and any diagnostic results supporting the discharge/admit diagnosis, lab results, to return to the emergency department if symptoms worsen or persist or if there are any questions or concerns that arise at home. Response to treatment: the patient's symptoms have markedly improved after treatment, and as a result, I will discharge patient. ED course: VSS. Abdominal exam negative for tenderness. Nausea improved, vomiting resolved. Will discharge to home for continued monitoring. 09/20 18:10 Order name: CBC with Diff; Complete Time: 18:43 09/20 19:15 Interpretation: Normal except: WBC 3.80; MPV 7.1; LYMA 0.6. 09/20 18:10 Order name: CMP; Complete Time: 19:31 09/20 19:32 Interpretation: Normal except: K 3.1; GFR 75. 09/20 18:10 Order name: Lipase; Complete Time: 19:31 09/20 20:04 Interpretation: Reviewed. 09/20 18:10 Order name: Test, Urine; Complete Time: 20:03 09/20 20:03 Interpretation: Reviewed. 09/20 18:10 Order name: Urinalysis w/ reflexes; Complete Time: 20:03 09/20 20:03 Interpretation: Normal except: UKET 1+; UUROB 2+. 09/20 18:44 Order name: Influenza Screen (a \\T\\ B); Complete Time: 20:03 09/20 20:03 Interpretation: Reviewed. 09/20 18:44 Order name: SARS RAPID; Complete Time: 20:03 09/20 20:03 Interpretation: Reviewed. 09/20 18:10 Order name: IV Saline Lock; Complete Time: 18:36 09/20 18:10 Order name: Labs collected and sent; Complete Time: 18:36 cp Administered Medications: 18:36 Drug: Famotidine IVP 20 mg IVP once; dilute with 10 mL 0.9% NaCl; give over 2 minutes ph Route: IVP; Site: right antecubital; 20:20 Follow up: Response: No adverse reaction rg5 18:36 Drug: Ondansetron IVP 4 mg IVP once; over 2 minutes Route: IVP; Site: right antecubital;ph 20:20 Follow up: Response: No adverse reaction rg5 18:36 Drug: NS 0.9% IV 1000 ml IV at 1 bolus Per protocol; to be given as a bolus over 60 ph minutes Route: IV; Rate: 1 bolus; Site: right antecubital; 19:10 Follow up: IV Status: Completed infusion; IV Intake: 1000ml 5 19:58 Drug: Potassium PO Effervescent Tablet 50 mEq PO once; dissolve in 4 ounces of water or rg5 juice Route: PO; 20:20 Follow up: Response: No adverse reaction rg5 Disposition Summary: 09/20/24 20:12 Discharge Ordered Notes: Location: Home cp Problem: new cp Symptoms: have improved cp Condition: Stable cp Diagnosis - Nausea with vomiting, unspecified cp - Diarrhea, unspecified cp Followup: cp - With: Private Physician - When: 2 - 3 days - Reason: symptoms continue Discharge Instructions: - Discharge Summary Sheet cp - Food Choices to Help Relieve Diarrhea, Adult cp - Diarrhea, Adult cp - Nausea and Vomiting, Adult cp Forms: - Medication Reconciliation Form cp - Antibiotic Education cp - Prescription Opioid Use cp - Patient Portal Instructions cp - Leadership Thank You Letter cp Prescriptions: - Zofran 4 mg Oral Tablet - take 1 tablet ORAL route every 12 hours As needed; 20 tablet; Refills: 0, cp Product Selection Permitted Signatures: Dispatcher [employer] Lakshmi Prabhakar RN RN Nico Wiseman PA PA cp Mi Newton RN RN ko1 Arturo Mccarthy RN RN rg5 Corrections: (The following items were deleted from the chart) 19:15 18:43 Normal except: WBC 3.80. cp cp
[2024-09-20 20:52] VITALS: TEMP 98; O2SAT 100
[2024-09-20 20:54] VITALS: BP 115/75
== END 2024-09-20 20:45 | disposition home or self-care (01) ==
LOC: ER 17:57
DX: R11.2 Nausea with vomiting, unspecified (principal); R19.7 Diarrhea, unspecified; Z11.52 Encounter for screening for COVID-19
CPT/HCPCS: 96361; 85025; 81001; 36415; 81025; 83690; 80053; 87804 ×2; 96375; 96374; 99284; 87811; J2405; J7030

== ENCOUNTER 2025-07-30 07:16 | Day surgery (SDC) | payer BC ==
[2025-07-30] MEDS: Ringers Lactate 1,000 ML IV ONE (07:35)
[2025-07-30] MEDS ORDERED: LIDOCAINE 1% MPF 5 ML VIAL ONE (08:07)
[2025-07-30 11:34] VITALS: TEMP 97.5
[2025-07-30 11:35] VITALS: BP 119/80; O2SAT 100
== END 2025-07-30 09:47 | disposition home or self-care (01) ==
LOC: OR 07:16
PROVIDERS: ATTEND Internal Medicine Gastroenterology
PROC: 0DB88ZX Excision of Small Intestine, Via Natural or Artificial Opening Endoscopic, Diagnostic (ICD-10-PCS; 2025-07-30)
PROC: 0DB78ZX Excision of Stomach, Pylorus, Via Natural or Artificial Opening Endoscopic, Diagnostic (ICD-10-PCS; principal; 2025-07-30 08:30)
DX: K21.9 Gastro-esophageal reflux disease without esophagitis (principal); R10.13 Epigastric pain; K29.50 Unspecified chronic gastritis without bleeding
CPT/HCPCS: 88312; 81025; 88305; 43239; J2704; J2003; J7120